=== PATIENT | female | born 1970 | race Caucasian/White ===

== ENCOUNTER 2018-10-13 19:36 | Inpatient (IN) | payer OTHER ==
[2018-10-13 21:03] VITALS: BMI 20.8
--- NOTE | 2018-10-13 21:28 | HP ---
CIWA Score Nausea/Vomitin-No Nausea/No Vomiting Muscle Tremors: 6 Anxiety: 5 Agitation: 5 Paroxysmal Sweats: No Perspiration Orientation: 0-Oriented Tacttile Disturbances: 2-Mild Itch/Numbness/Burn Auditory Disturbances: 0-None Visual Disturbances: 0-None Headache: 3-Moderate CIWA-Ar Total Score: 21 - Admission Criteria OASAS Guidelines: Admission for Medically Managed Detox: Requires at least one of the followin. CIWA greater than 12 2. Seizures within the past 24 hours 3. Delirium tremens within the past 24 hours 4. Hallucinations within the past 24 hours 5. Acute intervention needed for co occurring medical disorder 6. Acute intervention needed for co occurring psychiatric disorder 7. Severe withdrawal that cannot be handled at a lower level of care (continued vomiting, continued diarrhea, abnormal vital signs) requiring intravenous medication and/or fluids 8. Patient presents the following: Acute intervention needed for co-occurring med or psych disorder Admission Criteria Met: Admission criteria met Admission ROS [facility] Chief Complaint: SEEKING DETOX TXMENT FOR C/O WORSENING WITHDRAWAL SX'S Allergies/Adverse Reactions: Allergies Allergy/AdvReac Type Severity Reaction Status Date / Time No Known Allergies Allergy Verified 10/13/18 21:21 History of Present Illness: 48 Y.O. FEMALE WITH HX/O ALCOHOLISM HERE FOR DETOX. CLIENT WAS REFERRED BY A [facility] DRUM DRIER OPERATOR/ PCP. THIS IS HER FIRST ADMISSION HERE. STATES THIS IS HER FIRST INPATIENT TXMENT. DENIES OUTPATIENT TXMENT WELL. PRESENTS WITH C/O WORSENING WITHDRAWAL SX'S. CIWA 21. UTOX + THC, SORIN 0.249. DENIES ANY SIGNIFICANT PERIOD OF CLEAN TIME. REPORTS HX/O WITHDRAWAL SX'S, LAST EPISODE 01/09. DENIES PAST/PRESENT HX/O SI/HI,AVH, DT'S. LIVES WITH MOTHER, UNEMPLOYED, DENIES LEGALS. PMHX- CIRRHOSIS OF THE LIVER, COPD, ENDOMETRIOSIS PSYCH- DEPRESSION, ANXIETY Exam Limitations: No Limitations - Ebola screening Have you traveled outside of the country in the last 21 days: No (N) Have you had contact with anyone from an Ebola affected area: No Have you been sick,other than usual withdrawal symptoms: No Do you have a fever: No - Review of Systems Constitutional: Loss of Appetite, Malaise, Night Sweats, Changes in sleep, Unintentional Wgt. Loss EENT: reports: No Symptoms Reported Respiratory: reports: Shortness of Breath Cardiac: reports: Chest Tightness (R/T SOB/COPD) GI: reports: Poor Appetite, Poor Fluid Intake : reports: No Symptoms Reported Musculoskeletal: reports: Back Pain (CHRONIC), Neck Pain (CHRONIC) Integumentary: reports: No Symptoms Reported Neuro: reports: Seizure (R/T ALCOHOL WITHDRAWAL) Endocrine: reports: No Symptoms Reported Hematology: reports: No Symptoms Reported Psychiatric: reports: Orientated x3, Agitated, Depressed Other Systems: Reviewed and Negative Patient History - Patient Medical History Hx Anemia: No Hx Asthma: Yes Hx Chronic Obstructive Pulmonary Disease (COPD): Yes Hx Cancer: No Hx Cardiac Disorders: No Hx Congestive Heart Failure: No Hx Hypertension: No Hx Hypercholesterolemia: No Hx Pacemaker: No HX Cerebrovascular Accident: No Hx Seizures: Yes (ETOH WITHDRAWAL) Hx Dementia: No Hx Diabetes: No Hx Gastrointestinal Disorders: No Hx Liver Disease: Yes (CIRRHOSIS) Hx Genitourinary Disorders: No Hx Sexually Transmitted Disorders: No Hx Renal Disease (ESRD): No Hx Thyroid Disease: No Hx Human Immunodeficiency Virus (HIV): No Hx Hepatitis C: No Hx Depression: Yes Hx Suicide Attempt: No Hx Bipolar Disorder: No Hx Schizophrenia: No Other Medical History: ANXIETY - Patient Surgical History Past Surgical History: No - PPD History Previous Implant?: Yes Documented Results: Negative w/o proof Implanted On Prior [facility] Admission?: No PPD to be Administered?: Yes - Reproductive History Patient is a Female of Child Bearing Age (11 -55 yrs old): Yes LMP comment: 2016 Patient : No (NEG [facility] [place]) - Smoking Cessation Smoking history: Current every day smoker Have you smoked in the past 12 months: Yes Aproximately how many cigarettes per day: 20 Cigars Per Day: 0 Hx Chewing Tobacco Use: No Initiated information on smoking cessation: Yes 'Breaking Loose' booklet given: 10/13/18 - Substance & Tx. History Hx Alcohol Use: Yes Hx Substance Use: Yes Substance Use Type: Marijuana Hx Substance Use Treatment: No - Substances Abused RUM Route: Oral Frequency: Daily Amount used: 2 PINTS Age of first use: 33 Date of Last Use: 10/13/18 THC Route: Smoking Frequency: 3-6 times per week Amount used: 1/2 BLUNT Age of first use: 19 Date of Last Use: 10/10/18 Family Disease History - Family Disease History Family Disease History: Other: Father (CIRRHOSIS OF LIVER / ALCOHOLISM) , Sister (DRUGS/ CIRROHISIS / DEPRESSION) Admission Physical Exam S - Vital Signs Vital Signs: Vital Signs - 24 hr 10/13/18 21:00 Temperature 97.9 F Pulse Rate 104 H Respiratory 18 Rate Blood Pressure 102/63 - Physical General Appearance: Yes: Appropriately Dressed, Moderate Distress, Intoxicated ( BUT A/O X3), Tremorous, Irritable, Anxious HEENTM: Yes: EOMI, Normocephalic, Normal Voice, DILIP, Pharynx Normal, Scleral Ictenus R, Scleral Ictenus L Respiratory: Yes: Chest Non-Tender, Lungs Clear, Normal Breath Sounds, Decreased Breath Sounds, No Respiratory Distress Neck: Yes: No masses,lesions,Nodules, Supple, Trachea in good position Breast: Yes: Breast Exam Deferred Cardiology: Yes: Regular Rhythm, S1, S2, Tachycardia Abdominal: Yes: Decreased BS, Protuberent, Distended, Rebound (EPIGASTRIC REGION ), Hepatomegaly, Other (VARICES) Genitourinary: Yes: Other (NO C/O OFFERED) Back: Yes: Normal Inspection Musculoskeletal: Yes: full range of Motion, Gait Steady Extremities: Yes: Normal Range of Motion, Non-Tender, Tremors Neurological: Yes: Fully Oriented, Alert, Depressed Affect Integumentary: Yes: Dry, Warm, Jaundice, Petechiae (TO FACE AND UPPER CHEST), Pitting Edema (BLE) Lymphatic: Yes: Within Normal Limits - Diagnostic (1) Alcohol dependence with uncomplicated withdrawal Current Visit: Yes Status: Acute (2) Cannabis abuse, uncomplicated Current Visit: Yes Status: Acute (3) Nicotine dependence Current Visit: Yes Status: Chronic Qualifiers: Nicotine product type: cigarettes Substance use status: uncomplicated Qualified Code(s): F17.210 - Nicotine dependence, cigarettes, uncomplicated (4) Cirrhosis of liver Current Visit: Yes Status: Chronic Qualifiers: Hepatic cirrhosis type: alcoholic cirrhosis Ascites presence: unspecified Qualified Code(s): K70.30 - Alcoholic cirrhosis of liver without ascites (5) Hepatomegaly Current Visit: Yes Status: Chronic (6) Jaundice Current Visit: Yes Status: Chronic (7) Abdominal varicosities Current Visit: Yes Status: Chronic (8) Bilateral lower extremity edema Current Visit: Yes Status: Chronic (9) Scleral icterus Current Visit: Yes Status: Chronic Cleared for Admission [facility] - Detox or Rehab [facility] Level of Care: Medically Managed Detox Regimen/Protocol: Librium Claeared for Rehab Admission: No [facility] Breath Alcohol Content Breath Alcohol Content: 0.249 Urine Pregancy Test - Result Urine Test Results: Negative- NO Line Present Urine Drug Screen - Results Drug Screen Negative: No Urine Drug Screen Results: THC-Marijuana
[2018-10-13] MEDS ORDERED: MELATONIN 5 MG TABLETS PO PRN (22:00)
[2018-10-13] MEDS ORDERED: chlordiazePOXIDE HCL 25 MG CAPSULE PO PRN (22:22)
[2018-10-13] MEDS ORDERED: guaiFENesin/D-METHORPHAN HB 10 ML UNIT-DOSE CUPS PO PRN (22:22)
[2018-10-13] MEDS ORDERED: MENTHOL/PHENOL 1 EACH UD MM PRN (22:22)
[2018-10-13] MEDS ORDERED: MAGNESIUM CITRATE 300 ML BOTTLE PO PRN (22:22)
[2018-10-13] MEDS ORDERED: LOPERAMIDE HCL 2 MG CAPSULE PO PRN (22:22)
[2018-10-13] MEDS ORDERED: MAG HYDROX/AL HYDROX/SIMETH 30 ML UNIT-DOSE CUP PO PRN (22:22)
[2018-10-13] MEDS ORDERED: IBUPROFEN 400 MG TABLET (FP) PO PRN (22:22)
[2018-10-13] MEDS ORDERED: P-EPHED 60MG/TRIPROLIDI 2.5MG TABLET PO PRN (22:22)
[2018-10-13] MEDS ORDERED: MAGNESIUM HYDROX 2400MG/30ML ORAL SUSPENSION 30 ML CUP PO PRN (22:22)
[2018-10-13] MEDS ORDERED: ACETAMINOPHEN 325 MG TABLET (FP) PO PRN (22:22)
[2018-10-13] MEDS ORDERED: ALBUTEROL SO4 8 GM HFA INHALER IH PRN (22:30)
[2018-10-13] MEDS ORDERED: hydrOXYzine PAMOATE 50 MG CAPSULE (FP) PO PRN (22:52)
[2018-10-13] MEDS ORDERED: NICOTINE POLACRILEX 2 MG GUM BC PRN (22:52)
[2018-10-13] MEDS: chlordiazePOXIDE HCL 25 MG CAPSULE PO SCH (23:10)
[2018-10-14] MEDS: chlordiazePOXIDE HCL 25 MG CAPSULE PO SCH ×2 (05:26→10:29)
[2018-10-14] MEDS ORDERED: ALBUTEROL SO4 0.083% IH SOL 2.5 MG/3 ML VIAL.NEB. NEB PRN (09:12)
--- NOTE | 2018-10-14 09:14 | PN ---
BHS CIWA - CIWA Score Nausea/Vomitin-Mild Nausea/No Vomiting Muscle Tremors: 4-Moderate,w/Arms Extend Anxiety: 4-Mod. Anxious/Guarded Agitation: 2 Paroxysmal Sweats: 1-Minimal Palms Moist Orientation: 1-Uncertain about Date Tacttile Disturbances: 0-None Auditory Disturbances: 0-None Visual Disturbances: 0-None Headache: 2-Mild CIWA-Ar Total Score: 15 BHS Progress Note (SOAP) Subjective: heart burn sweating tremor headaches Objective: 10/14/18 09:14 Vital Signs Temperature 98.7 F 10/14/18 06:16 Pulse Rate 98 H 10/14/18 06:16 Respiratory Rate 18 10/14/18 06:16 Blood Pressure 99/51 L 10/14/18 06:16 O2 Sat by Pulse Oximetry (%) lab pending Assessment: 10/14/18 09:16 alcohol withdrawal sx gerd asthma Plan: continue alcohol detox regimen zantac 150 mg bid ventolin q4h prn albuterol q6h prn discontinue motrin
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
[2018-10-14] MEDS ORDERED: PATIENT'S OWN MEDICATION (NON-FORMULARY) (Potassium Chloride [Klor-Con] 20 MEQ) PO SCH (10:00)
[2018-10-14] MEDS ORDERED: PATIENT'S OWN MEDICATION (NON-FORMULARY) (Fluticasone Propionate [Flovent Diskus] 50 MCG) IH SCH (10:00)
[2018-10-14] MEDS ORDERED: POTASSIUM CHLORIDE TABS 20 MEQ TABLET.ER (FP) PO SCH ×2 (10:00→22:00)
[2018-10-14 10:27] LABS: ALBUMIN 2.3 g/dl (3.4-5.0); ALK PHOS 454 U/L (45-117); ANION GAP 10 MMOL/L (8-16); BILIRUBIN,TOTAL 2.9 mg/dL (0.2-1); BLOOD UREA NITROGEN 3 mg/dL (7-18); CALCIUM 7.7 mg/dL (8.5-10.1); CHLORIDE 92 mmol/L (98-107); CO2 32 mmol/L (21-32); CREATININE 0.3 mg/dL (0.55-1.3); GLUCOSE,RANDOM 75 mg/dL (74-106); SGOT/AST 226 U/L (15-37); SGPT/ALT 29 U/L (13-61); SODIUM 134 mmol/L (136-145); TOT PROT 6.9 g/dl (6.4-8.2)
[2018-10-14] MEDS ORDERED: PARoxetine HCL 10 MG TABLET (FP) ONE (10:29)
[2018-10-14] MEDS: PRENATAL VITAMINS W/ FOLIC ACID TABLET (FP) PO SCH (10:29)
[2018-10-14] MEDS: BUDESONIDE/FORMETEROL FUMARATE 160/4.5 mcg INHALER IH SCH ×2 (10:29→22:13)
[2018-10-14] MEDS: PARoxetine HCL 20 MG TABLET (FP) PO SCH (10:30)
[2018-10-14] MEDS: RANITIDINE HCL 150 MG TABLET (FP) PO SCH ×2 (10:30→22:13)
[2018-10-14] MEDS: NICOTINE 21 MG/24 HOURS TOPICAL PATCH TD SCH (10:30)
[2018-10-14 10:31] LABS: HEMATOCRIT 26.5 % (32.4-45.2); HEMOGLOBIN 9.4 GM/dL (10.7-15.3); MCH 34.6 pg (25.7-33.7); MCHC 35.3 g/dl (32.0-36.0); MEAN CELL VOLUME 98.2 fl (80-96); PLATELET COUNT 66 K/MM3 (134-434); RDW 16.1 % (11.6-15.6); WHITE BLOOD COUNT 8.1 K/mm3 (4.0-10.0)
[2018-10-14 10:58] LABS: POTASSIUM 2.4 mmol/L (3.5-5.1)
[2018-10-14] MEDS ORDERED: ONDANSETRON *ODT* 4 MG TABLET SL ONE (11:26)
[2018-10-14] MEDS: LORazepam 1 MG TABLET PO PRN ×2 (14:06→22:17)
[2018-10-14] MEDS: POTASSIUM CHLORIDE ORAL LIQUID 20 MEQ/15 ML PO SCH ×2 (14:29→17:16)
--- NOTE | 2018-10-14 15:10 | EKG ---
Test Reason : Blood Pressure : / mmHG Vent. Rate : 104 BPM Atrial Rate : 104 BPM P-R Int : 146 ms QRS Dur : 092 ms QT Int : 388 ms P-R-T Axes : 064 017 087 degrees QTc Int : 510 ms SINUS TACHYCARDIA NONSPECIFIC ST AND T WAVE ABNORMALITY ABNORMAL ECG NO PREVIOUS ECGS AVAILABLE Confirmed by Clarence Atkinson MD ([id number]) on 10/14/2018 3:10:20 PM Referred By: Confirmed By:Clarence Atkinson MD
[2018-10-14] MEDS: LORazepam 2 MG TABLET PO SCH ×2 (17:16→23:37)
[2018-10-14] MEDS: THIAMINE HCL 100 MG TABLET (FP) PO SCH (22:12)
[2018-10-14] MEDS: MONTELUKAST NA 10 MG TABLET PO SCH (22:12)
[2018-10-14] MEDS ORDERED: chlordiazePOXIDE HCL 25 MG CAPSULE PO SCH (23:00)
[2018-10-15 01:58] LABS: URINE APPEARANCE TURBID; URINE BILIRUBIN NEGATIVE (<2.0 mg/dL); URINE COLOR RED; URINE GLUCOSE (UA) NEGATIVE (NEGATIVE); URINE KETONE NEGATIVE (NEGATIVE); URINE LEUK ESTERASE NEGATIVE (NEGATIVE); URINE NITRITE NEGATIVE (NEGATIVE); URINE PROTEIN 1+ (NEGATIVE); URINE UROBILINOGEN 4.0 E.U/dl mg/dL (0.2-1.0)
[2018-10-15 02:07] LABS: EPI CELLS RARE /HPF (FEW); URINE BACTERIA FEW /hpf (NONE SEEN); URINE HYALINE CAST 4 /lpf; URINE MUCUS MANY
[2018-10-15] MEDS: LORazepam 1 MG TABLET PO SCH ×4 (07:20→23:00)
[2018-10-15] MEDS ORDERED: PARoxetine HCL 10 MG TABLET (FP) ONE (08:06)
[2018-10-15] MEDS ORDERED: POTASSIUM CHLORIDE TABS 20 MEQ TABLET.ER (FP) PO SCH ×2 (10:00)
[2018-10-15] MEDS: BUDESONIDE/FORMETEROL FUMARATE 160/4.5 mcg INHALER IH SCH ×2 (10:09→22:27)
[2018-10-15] MEDS: PRENATAL VITAMINS W/ FOLIC ACID TABLET (FP) PO SCH (10:09)
[2018-10-15] MEDS: PARoxetine HCL 20 MG TABLET (FP) PO SCH (10:09)
[2018-10-15] MEDS: NICOTINE 21 MG/24 HOURS TOPICAL PATCH TD SCH (10:10)
[2018-10-15] MEDS: RANITIDINE HCL 150 MG TABLET (FP) PO SCH ×2 (11:28→22:27)
--- NOTE | 2018-10-15 13:26 | PN ---
BHS Progress Note Note: potassium serum level 3.5 discontinue K+ supplement encourage K+ rich food
[2018-10-15] MEDS ORDERED: ONDANSETRON *ODT* 4 MG TABLET SL PRN (13:58)
--- NOTE | 2018-10-15 15:38 | PN ---
S CIWA - CIWA Score Nausea/Vomitin Muscle Tremors: None Anxiety: 3 Agitation: 0-Normal Activity Paroxysmal Sweats: 3 Orientation: 0-Oriented Tacttile Disturbances: 2-Mild Itch/Numbness/Burn Auditory Disturbances: 0-None Visual Disturbances: 2-Mild Sensitivity Headache: 0-None Present CIWA-Ar Total Score: 15 BHS Progress Note (SOAP) Subjective: Vomiting, Interrupted Sleep, Hot / Cold Sensations, Constipation, Stomach Cramping, H/A, Sweating, Fatigue. Objective: PATIENT A & O X 3, OBSERVED AMBULATING ON UNIT. IN NO ACUTE DISTRESS. 10/15/18 15:36 Vital Signs Temperature 100.5 F H 10/15/18 13:36 Pulse Rate 105 H 10/15/18 13:36 Respiratory Rate 18 10/15/18 13:36 Blood Pressure 97/72 10/15/18 13:36 O2 Sat by Pulse Oximetry (%) Laboratory Tests 10/14/18 10/14/18 10/14/18 07:00 07:00 07:00 WBC 8.1 RBC 2.70 L Hgb 9.4 L Hct 26.5 L MCV 98.2 H MCH 34.6 H MCHC 35.3 RDW 16.1 H Plt Count 66 L MPV 9.0 Manual Slide Review Platelet Comment No clotting detected Sodium 134 L Potassium 2.4 L* Chloride 92 L Carbon Dioxide 32 Anion Gap 10 BUN 3 L Creatinine 0.3 L Creat Clearance w eGFR > 60 Random Glucose 75 Calcium 7.7 L Total Bilirubin 2.9 H AST 226 H ALT 29 Alkaline Phosphatase 454 H Total Protein 6.9 Albumin 2.3 L Urine Color Urine Appearance Urine pH Ur Specific [place] Urine Protein Urine Glucose (UA) Urine Ketones Urine Blood Urine Nitrite Urine Bilirubin Urine Urobilinogen Ur Leukocyte Esterase Urine WBC (Auto) Urine RBC (Auto) Ur Epithelial Cells Urine Bacteria Hyaline Casts Urine Mucus RPR Titer Nonreactive 10/14/18 10/15/18 18:51 07:00 WBC RBC Hgb Hct MCV MCH MCHC RDW Plt Count MPV Manual Slide Review Platelet Comment Sodium Potassium 3.5 Chloride Carbon Dioxide Anion Gap BUN Creatinine Creat Clearance w eGFR Random Glucose Calcium Total Bilirubin AST ALT Alkaline Phosphatase Total Protein Albumin Urine Color Red Urine Appearance Turbid Urine pH 6.0 Ur Specific [place] 1.026 Urine Protein 1+ H Urine Glucose (UA) Negative Urine Ketones Negative Urine Blood Negative Urine Nitrite Negative Urine Bilirubin Negative Urine Urobilinogen 4.0 e.u/dl H Ur Leukocyte Esterase Negative Urine WBC (Auto) 2 Urine RBC (Auto) 1 Ur Epithelial Cells Rare Urine Bacteria Few Hyaline Casts 4 Urine Mucus Many RPR Titer LABS NOTED. Assessment: 10/15/18 15:36 WITHDRAWAL SYMPTOMS. ANEMIA. THROMBOCYTOPENIA. ELEVATED LIVER ENZYMES. 10/15/18 15:40 Plan: CONTINUE DETOX. INCREASE DAILY PO FLUID INTAKE. HFP TOMORROW FOR ELEVATED ADMISSION LIVER ENZYME VALUES (PATIENT PREVIOUSLY SWITCHED TO [facility] DETOX REGIMEN). REPEAT CBC TOMORROW AM FOR ADMISSION ABNORMALITIES. PATIENT CURRENTLY RECEIVING DAILY MVI CONTAINING B VITAMINS AND IRON WHILE ADMITTED FOR DETOX. PATIENT REPORTS A "LUMP" ON LOWER ABDOMEN FOR SEVERAL MONTHS NOW. SMALL MASS NOTED SLIGHTLY SUPERIOR AND ADJACENT TO UMBILICUS. NO ERYTHEMA, WOUNDS, DISCHARGE, OR SIGNS OF INFECTION NOTED AT SITE. PATIENT NOTES THAT SHE HAS ALKREADY CONSULTED HER ORTHOTIST PROSTHETIST (DR. PAYTON, [place], [place]) REGARDING THIS MATTER. PATIENT REFERRED BACK TO [facility] AFTER DISCHARGE FROM DETOX UNIT FOR FURTHER MEDICAL EVALUATION. PATIENT VERBALIZED UNDERSTANDING OF RECOMMENDATION.
[2018-10-15] MEDS: THIAMINE HCL 100 MG TABLET (FP) PO SCH (22:27)
[2018-10-15] MEDS: MONTELUKAST NA 10 MG TABLET PO SCH (22:27)
[2018-10-15] MEDS ORDERED: chlordiazePOXIDE 5 MG CAPSULE PO SCH (23:00)
[2018-10-16] MEDS: LORazepam 1 MG TABLET PO SCH ×2 (06:04→13:01)
[2018-10-16 09:23] VITALS: BP 85/63; PULSE 99; TEMP 99.4
[2018-10-16] MEDS ORDERED: PARoxetine HCL 10 MG TABLET (FP) ONE (09:35)
[2018-10-16 10:27] LABS: BASO % 1.1 % (0-2.0); EOS % 1.5 % (0-4.5); HEMATOCRIT 27.7 % (32.4-45.2); HEMOGLOBIN 9.7 GM/dL (10.7-15.3); LYMPH % 11.4 % (8-40); MCH 34.7 pg (25.7-33.7); MCHC 34.8 g/dl (32.0-36.0); MEAN CELL VOLUME 99.6 fl (80-96); MEAN PLT VOLUME 10.2 fl (7.5-11.1); MONO % 8.6 % (3.8-10.2); NEUT % 77.4 % (42.8-82.8); PLATELET COUNT 71 K/MM3 (134-434); RBC 2.79 M/mm3 (3.60-5.2); RDW 16.3 % (11.6-15.6)
[2018-10-16] MEDS: BUDESONIDE/FORMETEROL FUMARATE 160/4.5 mcg INHALER IH SCH (10:48)
[2018-10-16] MEDS: RANITIDINE HCL 150 MG TABLET (FP) PO SCH (10:48)
[2018-10-16] MEDS: PARoxetine HCL 20 MG TABLET (FP) PO SCH (10:48)
[2018-10-16] MEDS: PRENATAL VITAMINS W/ FOLIC ACID TABLET (FP) PO SCH (10:48)
[2018-10-16] MEDS: NICOTINE 21 MG/24 HOURS TOPICAL PATCH TD SCH (10:48)
[2018-10-16 11:19] LABS: ALBUMIN 2.3 g/dl (3.4-5.0); BILIRUBIN,DIRECT 3.2 mg/dL (0.0-0.2); TOT PROT 6.9 g/dl (6.4-8.2)
--- NOTE | 2018-10-16 13:59 | PN ---
S Progress Note (SOAP) Subjective: Patient still reports mild Nausea. Patient Reports that Previous Stomach Cramping has improved substantially. Objective: PATIENT A & O X 3. IN NO ACUTE DISTRESS. 10/16/18 13:54 Vital Signs Temperature 99.4 F 10/16/18 09:22 Pulse Rate 99 H 10/16/18 09:22 Respiratory Rate 18 10/16/18 09:22 Blood Pressure 85/63 L 10/16/18 09:22 O2 Sat by Pulse Oximetry (%) Laboratory Tests 10/14/18 10/14/18 10/14/18 07:00 07:00 07:00 WBC 8.1 RBC 2.70 L Hgb 9.4 L Hct 26.5 L MCV 98.2 H MCH 34.6 H MCHC 35.3 RDW 16.1 H Plt Count 66 L MPV 9.0 Absolute Neuts (auto) Neutrophils % Lymphocytes % Monocytes % Eosinophils % Basophils % Nucleated RBC % Manual Slide Review Platelet Comment No clotting detected Sodium 134 L Potassium 2.4 L* Chloride 92 L Carbon Dioxide 32 Anion Gap 10 BUN 3 L Creatinine 0.3 L Creat Clearance w eGFR > 60 Random Glucose 75 Calcium 7.7 L Total Bilirubin 2.9 H Direct Bilirubin AST 226 H ALT 29 Alkaline Phosphatase 454 H Ammonia Total Protein 6.9 Albumin 2.3 L Urine Color Urine Appearance Urine pH Ur Specific [place] Urine Protein Urine Glucose (UA) Urine Ketones Urine Blood Urine Nitrite Urine Bilirubin Urine Urobilinogen Ur Leukocyte Esterase Urine WBC (Auto) Urine RBC (Auto) Ur Epithelial Cells Urine Bacteria Hyaline Casts Urine Mucus RPR Titer Nonreactive 10/14/18 10/15/18 10/16/18 18:51 07:00 07:00 WBC 8.0 RBC 2.79 L Hgb 9.7 L Hct 27.7 L MCV 99.6 H MCH 34.7 H MCHC 34.8 RDW 16.3 H Plt Count 71 L MPV 10.2 D Absolute Neuts (auto) 6.2 Neutrophils % 77.4 Lymphocytes % 11.4 Monocytes % 8.6 Eosinophils % 1.5 Basophils % 1.1 Nucleated RBC % 0 Manual Slide Review Platelet Comment Sodium Potassium 3.5 Chloride Carbon Dioxide Anion Gap BUN Creatinine Creat Clearance w eGFR Random Glucose Calcium Total Bilirubin Direct Bilirubin AST ALT Alkaline Phosphatase Ammonia Total Protein Albumin Urine Color Red Urine Appearance Turbid Urine pH 6.0 Ur Specific [place] 1.026 Urine Protein 1+ H Urine Glucose (UA) Negative Urine Ketones Negative Urine Blood Negative Urine Nitrite Negative Urine Bilirubin Negative Urine Urobilinogen 4.0 e.u/dl H Ur Leukocyte Esterase Negative Urine WBC (Auto) 2 Urine RBC (Auto) 1 Ur Epithelial Cells Rare Urine Bacteria Few Hyaline Casts 4 Urine Mucus Many RPR Titer 10/16/18 10/16/18 07:00 13:00 WBC RBC Hgb Hct MCV MCH MCHC RDW Plt Count MPV Absolute Neuts (auto) Neutrophils % Lymphocytes % Monocytes % Eosinophils % Basophils % Nucleated RBC % Manual Slide Review Platelet Comment Sodium Potassium Chloride Carbon Dioxide Anion Gap BUN Creatinine Creat Clearance w eGFR Random Glucose Calcium Total Bilirubin 4.0 H Direct Bilirubin 3.2 H AST 133 H ALT 22 Alkaline Phosphatase 410 H Ammonia 41.80 H Total Protein 6.9 Albumin 2.3 L Urine Color Urine Appearance Urine pH Ur Specific [place] Urine Protein Urine Glucose (UA) Urine Ketones Urine Blood Urine Nitrite Urine Bilirubin Urine Urobilinogen Ur Leukocyte Esterase Urine WBC (Auto) Urine RBC (Auto) Ur Epithelial Cells Urine Bacteria Hyaline Casts Urine Mucus RPR Titer LABS NOTED. Assessment: 10/16/18 13:54 COMPLETION OF DETOX REGIMEN. Plan: RECEIVED NOTIFICATION FROM PATIENT'S COUNSELOR (Leona GALEANA) THAT BED IS OPEN FOR ADMISSION AT [facility] ([place], [place]) AT THIS TIME. PATIENT REPORTS THAT SHE FEELS WELL ENOUGH AT THIS TIME TO GO [facility] FOR AFTERCARE. DUE TO HISTORY OF HEPATIC DISEASE AND THE FACT THAT PATIENT STILL APPEARS SOMEWHAT LETHARGIC AMMONIA LEVEL ORDERED A PRECAUTION. CMP AND CBC TO BE CHECKED AGAIN IN THREE DAYS ONCE PATIENT IS ADMITTED ON REHAB UNIT. AMMONIA TO BE CHECKED AGAIN IF NECESSARY BASED UPON TODAY'S PENDING RESULT. SEE [facility] DETOX DISCHARGE SUMMARY AND [facility] MD REHAB ASSESS/REVISION NOTES FOR FURTHER INFORMATION.
--- NOTE | 2018-10-16 14:06 | DS ---
[facility] Detox Discharge Summary Admission Date: 10/13/18 Discharge Date: 10/16/18 - History Present History: Alcohol Dependence, Cannabis Dependence Additional Comments: PATIENT REPORTS NAUSEA AND FATIGUE LINGERING WITHDRAWAL SYMPTOMS. HOWEVER, THERE IS CURRENTLY A BED AVAILABLE AT [facility] ([place], [place]) TODAY, PATIENT REQUESTS TO GO ON TO [facility] FOR AFTERCARE TODAY. CBC, CMP, AND AMMONIA LEVELS TO BE RE-CHECKED AGAIN FOUR DAYS TO SEE IF ANY CHANGE SINCE ADMISSION ABNORMALITIES. AMMONIA LEVEL CHECKED TODAY PRECAUTION DUE TO LINGERING LETHARGY (RESULT NOTED, LACTULOSE ORDERED FOR THREE DAYS). PATIENT AGAIN ADVISED TO CONSULT NECK BAND OPERATOR DR. PAYTON ([place], [place]) AFTER DISCHARGE FROM REHAB FOR GENERAL MEDICAL ASSESSMENT AND FOR HISTORY OF HEPATIC DISEASE. PATIENT VERBALIZED UNDERSTANDING OF RECOMMENDATION. Pertinent Past History: History of Cirrhosis Of Liver, History of Jaundice, Elevated Liver Enzymes, Anemia, Thrombocytopenia, Hypokalemia, Asthma, Bilateral Lower Extremity Edema, Abdominal Varicosities, Scleral Icterus, Hepatomegaly, Nicotine Dependence. - Physical Exam Results Vital Signs: Vital Signs Temperature 99.4 F 10/16/18 09:22 Pulse Rate 99 H 10/16/18 09:22 Respiratory Rate 18 10/16/18 09:22 Blood Pressure 85/63 L 10/16/18 09:22 O2 Sat by Pulse Oximetry (%) Pertinent Admission Physical Exam Findings: WITHDRAWAL SYMPTOMS. Laboratory Tests 10/14/18 10/14/18 10/14/18 07:00 07:00 07:00 WBC 8.1 RBC 2.70 L Hgb 9.4 L Hct 26.5 L MCV 98.2 H MCH 34.6 H MCHC 35.3 RDW 16.1 H Plt Count 66 L MPV 9.0 Absolute Neuts (auto) Neutrophils % Lymphocytes % Monocytes % Eosinophils % Basophils % Nucleated RBC % Manual Slide Review Platelet Comment No clotting detected Sodium 134 L Potassium 2.4 L* Chloride 92 L Carbon Dioxide 32 Anion Gap 10 BUN 3 L Creatinine 0.3 L Creat Clearance w eGFR > 60 Random Glucose 75 Calcium 7.7 L Total Bilirubin 2.9 H Direct Bilirubin AST 226 H ALT 29 Alkaline Phosphatase 454 H Total Protein 6.9 Albumin 2.3 L Urine Color Urine Appearance Urine pH Ur Specific [place] Urine Protein Urine Glucose (UA) Urine Ketones Urine Blood Urine Nitrite Urine Bilirubin Urine Urobilinogen Ur Leukocyte Esterase Urine WBC (Auto) Urine RBC (Auto) Ur Epithelial Cells Urine Bacteria Hyaline Casts Urine Mucus RPR Titer Nonreactive 10/14/18 10/15/18 10/16/18 18:51 07:00 07:00 WBC 8.0 RBC 2.79 L Hgb 9.7 L Hct 27.7 L MCV 99.6 H MCH 34.7 H MCHC 34.8 RDW 16.3 H Plt Count 71 L MPV 10.2 D Absolute Neuts (auto) 6.2 Neutrophils % 77.4 Lymphocytes % 11.4 Monocytes % 8.6 Eosinophils % 1.5 Basophils % 1.1 Nucleated RBC % 0 Manual Slide Review Platelet Comment Sodium Potassium 3.5 Chloride Carbon Dioxide Anion Gap BUN Creatinine Creat Clearance w eGFR Random Glucose Calcium Total Bilirubin Direct Bilirubin AST ALT Alkaline Phosphatase Total Protein Albumin Urine Color Red Urine Appearance Turbid Urine pH 6.0 Ur Specific [place] 1.026 Urine Protein 1+ H Urine Glucose (UA) Negative Urine Ketones Negative Urine Blood Negative Urine Nitrite Negative Urine Bilirubin Negative Urine Urobilinogen 4.0 e.u/dl H Ur Leukocyte Esterase Negative Urine WBC (Auto) 2 Urine RBC (Auto) 1 Ur Epithelial Cells Rare Urine Bacteria Few Hyaline Casts 4 Urine Mucus Many RPR Titer 10/16/18 07:00 WBC RBC Hgb Hct MCV MCH MCHC RDW Plt Count MPV Absolute Neuts (auto) Neutrophils % Lymphocytes % Monocytes % Eosinophils % Basophils % Nucleated RBC % Manual Slide Review Platelet Comment Sodium Potassium Chloride Carbon Dioxide Anion Gap BUN Creatinine Creat Clearance w eGFR Random Glucose Calcium Total Bilirubin 4.0 H Direct Bilirubin 3.2 H AST 133 H ALT 22 Alkaline Phosphatase 410 H Total Protein 6.9 Albumin 2.3 L Urine Color Urine Appearance Urine pH Ur Specific [place] Urine Protein Urine Glucose (UA) Urine Ketones Urine Blood Urine Nitrite Urine Bilirubin Urine Urobilinogen Ur Leukocyte Esterase Urine WBC (Auto) Urine RBC (Auto) Ur Epithelial Cells Urine Bacteria Hyaline Casts Urine Mucus RPR Titer LABS NOTED. - Treatment Hospital Course: Detox Protocol Followed, Detoxed Safely, Responded well, Discharged Condition Good, Rehab Referral Accepted Patient has Accepted a Rehab Referral to: [facility] ([place], [place]). - Medication Discharge Medications: Ambulatory Orders Albuterol Sulfate Inhaler - [Ventolin Hfa Inhaler -] 2 inh PO Q6H 10/13/18 Budesonide/Formeterol Fumarate [SYMBICORT 160/4.5mcg -] 1 inh PO BID 10/13/18 Ergocalciferol [Vitamin D2] 50,000 unit PO WEEKLY 10/13/18 Fluticasone Propionate [Flovent Diskus] 50 mcg IH DAILY 10/13/18 Montelukast Sodium [Singulair] 10 mg PO HS 10/13/18 Paroxetine HCl [Paxil -] 20 mg PO DAILY 10/13/18 Potassium Chloride [Klor-Con] 20 meq PO DAILY 10/13/18 - Diagnosis (1) Alcohol dependence with uncomplicated withdrawal Status: Acute (2) Anemia Status: Acute Qualifiers: Anemia type: unspecified type Qualified Code(s): D64.9 - Anemia, unspecified (3) Cannabis abuse, uncomplicated Status: Acute (4) Elevated liver enzymes Status: Acute (5) Thrombocytopenia Status: Acute (6) Abdominal varicosities Status: Chronic (7) Bilateral lower extremity edema Status: Chronic (8) Cirrhosis of liver Status: Chronic Qualifiers: Hepatic cirrhosis type: alcoholic cirrhosis Ascites presence: unspecified Qualified Code(s): K70.30 - Alcoholic cirrhosis of liver without ascites (9) Jaundice Status: Chronic (10) Nicotine dependence Status: Chronic Qualifiers: Nicotine product type: cigarettes Substance use status: uncomplicated Qualified Code(s): F17.210 - Nicotine dependence, cigarettes, uncomplicated (11) Scleral icterus Status: Chronic (12) Substance induced mood disorder Status: Acute (13) Hepatomegaly Status: Chronic (14) Hyperammonemia Status: Acute - AMA Did Patient Leave Against Medical Advice: No
[2018-10-16] MEDS ORDERED: chlordiazePOXIDE HCL 10 MG CAPSULE PO SCH (23:00)
[2018-10-17] MEDS ORDERED: LORazepam 2 MG TABLET PO ONE (06:00)
== END 2018-10-16 03:45 | disposition home or self-care (01) | DRG 774 ==
LOC: YASAS 19:36 → Y3N 22:06
PROVIDERS: ADMIT Surgery; ATTEND Surgery
PROC: HZ2ZZZZ Detoxification Services for Substance Abuse Treatment (ICD-10-PCS; principal; 2018-10-13)
DX: F10.230 Alcohol dependence with withdrawal, uncomplicated (principal); F14.10 Cocaine abuse, uncomplicated; F17.210 Nicotine dependence, cigarettes, uncomplicated; F19.24 Other psychoactive substance dependence with psychoactive substance-induced mood disorder; R00.0 Tachycardia, unspecified; D64.9 Anemia, unspecified; D69.6 Thrombocytopenia, unspecified; I86.8 Varicose veins of other specified sites; R60.0 Localized edema; K70.30 Alcoholic cirrhosis of liver without ascites; R17 Unspecified jaundice; H15.89 Other disorders of sclera; R16.0 Hepatomegaly, not elsewhere classified; E72.20 Disorder of urea cycle metabolism, unspecified; J44.9 Chronic obstructive pulmonary disease, unspecified; K21.9 Gastro-esophageal reflux disease without esophagitis; Z86.69 Personal history of other diseases of the nervous system and sense organs
CPT/HCPCS: 36415; 80053; 80076; 81003; 81015; 82140; 84132; 85025; 85027; 86593; 93005; 93010; Q0162

== ENCOUNTER 2018-10-16 15:49 | Inpatient (IN) | payer OTHER ==
--- NOTE | 2018-10-16 14:13 | HP ---
CAITLIN RAMÍREZ Rehab Assess/Revision - Admission History Admitted to Rehab from: [facility] Date of Admission to Rehab: 10/16/2018 - Vital signs Vital Signs: NOTED; STABLE. - Findings Detox History & Physical reviewed: Yes Concur with findings: Yes Comments/Additional Findings: PATIENT'S MEDICAL / MEDICATION HISTORY REVIEWED PRIOR TO DISCHARGE FROM DETOX UNIT. PATIENT WAS DISCHARGED FROM DETOX UNIT TO BE TAKEN TO REHAB UNIT IN STABLE MEDICAL CONDITION. CBC, CMP, AND AMMONIA LEVELS TO BE RE-CHECKED AGAIN FOUR DAYS TO SEE IF ANY CHANGE SINCE ADMISSION ABNORMALITIES. AMMONIA LEVEL CHECKED TODAY PRECAUTION DUE TO LINGERING LETHARGY WHILE ON DETOX UNIT (RESULT NOTED, LACTULOSE PO ORDERED FOR THREE DAYS) . PATIENT AGAIN ADVISED TO CONSULT ANIMAL HERDER DR. PAYTON ([place], [place]) AFTER DISCHARGE FROM REHAB FOR GENERAL MEDICAL ASSESSMENT AND FOR HISTORY OF HEPATIC DISEASE. PATIENT VERBALIZED UNDERSTANDING OF RECOMMENDATION. Inpatient Rehab Admission - Rehab Decision to Admit Inpatient rehab admission?: Yes - Initial Determination Are CD services needed?: Yes Free of communicable disease: Yes Not in need of hospitalization: Yes - Rehab Admission Criteria Previous failed treatment: No Poor recovery environment: No Comorbidities: Yes Lacks judgement: Yes Patient is meeting Inpatient Rehab admission criteria:: Yes
[~2018-10-16 15:49] MED LIST: ALBUTEROL SO4 2.5/IPRATROPIUM 0.5 INH SOL 3 ML VIAL.NEB. NEB PRN; ALBUTEROL SO4 8 GM HFA INHALER IH PRN; IBUPROFEN 400 MG TABLET (FP) PO PRN; LOPERAMIDE HCL 2 MG CAPSULE PO PRN; MAG HYDROX/AL HYDROX/SIMETH 30 ML UNIT-DOSE CUP PO PRN; MAGNESIUM CITRATE 300 ML BOTTLE PO PRN; MAGNESIUM HYDROX 2400MG/30ML ORAL SUSPENSION 30 ML CUP PO PRN; MENTHOL/PHENOL 1 EACH UD MM PRN; NICOTINE POLACRILEX 2 MG GUM BUC PRN; ONDANSETRON *ODT* 4 MG TABLET SL PRN; P-EPHED 60MG/TRIPROLIDI 2.5MG TABLET PO PRN; guaiFENesin/D-METHORPHAN HB 10 ML UNIT-DOSE CUPS PO PRN
[2018-10-16] MEDS: LACTULOSE 20 GM/30 ML UDC (FOR ORAL USE ONLY) PO SCH (21:59)
[2018-10-16] MEDS: THIAMINE HCL 100 MG TABLET (FP) PO SCH (21:59)
[2018-10-16] MEDS: RANITIDINE HCL 150 MG TABLET (FP) PO SCH (22:00)
[2018-10-16] MEDS: BUDESONIDE/FORMETEROL FUMARATE 160/4.5 mcg INHALER IH SCH (22:00)
[2018-10-16] MEDS: MONTELUKAST NA 10 MG TABLET PO SCH (22:00)
[2018-10-16] MEDS ORDERED: MELATONIN 5 MG TABLETS PO PRN (22:00)
[2018-10-16 22:32] VITALS: BMI 21.9
[2018-10-17] MEDS ORDERED: PT OWN MED DRAWER 7, Y5N ONE (08:35)
[2018-10-17] MEDS: NICOTINE 21 MG/24 HOURS TOPICAL PATCH TD SCH (09:46)
[2018-10-17] MEDS: BUDESONIDE/FORMETEROL FUMARATE 160/4.5 mcg INHALER IH SCH ×2 (09:46→21:31)
[2018-10-17] MEDS: PRENATAL VITAMINS W/ FOLIC ACID TABLET (FP) PO SCH (09:46)
[2018-10-17] MEDS: RANITIDINE HCL 150 MG TABLET (FP) PO SCH ×2 (09:46→21:30)
[2018-10-17] MEDS: LACTULOSE 20 GM/30 ML UDC (FOR ORAL USE ONLY) PO SCH ×2 (09:46→21:30)
[2018-10-17] MEDS: THIAMINE HCL 100 MG TABLET (FP) PO SCH (21:30)
[2018-10-17] MEDS: MONTELUKAST NA 10 MG TABLET PO SCH (21:30)
[2018-10-18] MEDS: LACTULOSE 20 GM/30 ML UDC (FOR ORAL USE ONLY) PO SCH ×2 (09:50→21:37)
[2018-10-18] MEDS: NICOTINE 21 MG/24 HOURS TOPICAL PATCH TD SCH (09:50)
[2018-10-18] MEDS: RANITIDINE HCL 150 MG TABLET (FP) PO SCH ×2 (09:51→21:37)
[2018-10-18] MEDS: BUDESONIDE/FORMETEROL FUMARATE 160/4.5 mcg INHALER IH SCH ×2 (09:51→21:38)
[2018-10-18] MEDS: PRENATAL VITAMINS W/ FOLIC ACID TABLET (FP) PO SCH (09:51)
[2018-10-18] MEDS: MONTELUKAST NA 10 MG TABLET PO SCH (21:38)
[2018-10-18] MEDS: THIAMINE HCL 100 MG TABLET (FP) PO SCH (21:38)
[2018-10-19] MEDS: BUDESONIDE/FORMETEROL FUMARATE 160/4.5 mcg INHALER IH SCH ×2 (09:58→21:34)
[2018-10-19] MEDS: NICOTINE 21 MG/24 HOURS TOPICAL PATCH TD SCH (09:58)
[2018-10-19] MEDS: PRENATAL VITAMINS W/ FOLIC ACID TABLET (FP) PO SCH (09:58)
[2018-10-19] MEDS: LACTULOSE 20 GM/30 ML UDC (FOR ORAL USE ONLY) PO SCH (09:58)
[2018-10-19] MEDS: RANITIDINE HCL 150 MG TABLET (FP) PO SCH ×2 (09:59→21:34)
[2018-10-19] MEDS: MONTELUKAST NA 10 MG TABLET PO SCH (21:34)
[2018-10-19] MEDS: THIAMINE HCL 100 MG TABLET (FP) PO SCH (21:34)
[2018-10-20 06:58] VITALS: PULSE 84; TEMP 97.8
[2018-10-20 07:28] VITALS: BP 82/54
--- NOTE | 2018-10-20 09:54 | CONSULT ---
[facility] Psychiatric Consult - Data Date of interview: 10/20/18 Admission source: [address] [place] [address] Identifying data: This is the first admission to [address] [place] [address] for this 48 years old single H childless,unemployed,supported by PA,resides with her mother. Substance Abuse History: Patient reports drinking since school,beer,recently heavy drinker with seizures,started drinking Rum. Medical History: COPD,Liver cirrhosis,Endometriosis. Psychiatric History: Reports first contact with psychiatrist about 5 years ago to address depressed mood,anxiety,sleeping difficulties.No suicidal attempts,no psychiatric admissions reported.Patient obtains paxil 20 mg po daily from her PCP. Physical/Sexual Abuse/Trauma History: denies Mental Status Exam - Mental Status Exam Alert and Oriented to: Time, Place, Person Cognitive Function: Grossly Intact Patient Appearance: Well Groomed Mood: Sad, Anxious, Irritable Affect: Mood Congruent, Labile Patient Behavior: Cooperative Speech Pattern: Clear Voice Loudness: Normal Thought Process: Goal Oriented Thought Disorder: Not Present Hallucinations: Denies Suicidal Ideation: Denies Homicidal Ideation: Denies Insight/Judgement: Fair Sleep: Difficulty falling asleep Appetite: Fair Muscle strength/Tone: Normal Gait/Station: Normal Psychiatric Findings - Problem List ([place] 1, 2,3) (1) Alcohol dependence with uncomplicated withdrawal Status: Chronic (2) Anemia Status: Acute Qualifiers: Anemia type: unspecified type Qualified Code(s): D64.9 - Anemia, unspecified (3) Cannabis abuse, uncomplicated Status: Chronic (4) Substance induced mood disorder Status: Chronic (5) Thrombocytopenia Status: Chronic (6) Abdominal varicosities Status: Chronic - Initial Treatment Plan Initial Treatment Plan: Continue Paxil 20 mg po daily. Will monitor progress.
[2018-10-20 09:56] LABS: BASO % 1.1 % (0-2.0); EOS % 1.1 % (0-4.5); HEMATOCRIT 29.5 % (32.4-45.2); HEMOGLOBIN 10.2 GM/dL (10.7-15.3); LYMPH % 13.2 % (8-40); MCH 34.6 pg (25.7-33.7); MCHC 34.7 g/dl (32.0-36.0); MEAN CELL VOLUME 99.8 fl (80-96); MEAN PLT VOLUME 9.6 fl (7.5-11.1); MONO % 10.9 % (3.8-10.2); NEUT % 73.7 % (42.8-82.8); PLATELET COUNT 146 K/MM3 (134-434); RBC 2.96 M/mm3 (3.60-5.2); RDW 16.6 % (11.6-15.6)
[2018-10-20] MEDS ORDERED: PARoxetine HCL 20 MG TABLET (FP) PO SCH (10:15)
--- NOTE | 2018-10-20 10:22 | PN ---
[facility] Progress Note Note: PATIENT SEEN FOR REQUEST TO SIGN OUT AMA. [employer]ARNISH MIXER MET WITH PATIENT WHO REPORTED THAT SHE COULD NOT RELAX, SLEEP OR FEEL COMFORTABLE IN THIS ENVIRONMENT. PATIENT STATES SHE HAS DEPRESSION AND ANXIETY AND BEING IN THIS SETTING IS MAKING HER FEEL WORSE. PSYCH REFERRAL ORDERED AND PATIENT WAS EVALUATED BY PSYCHIATRY. PATIENT COMPLETED DETOX HERE AT [facility] FOR ETOH DEPENDENCE AND HAS PMH OF ASTHMA AND CIRRHOSIS OF THE LIVER. LAST AMMONIA LEVEL 41 AND PATIENT TREATED WITH LACTULOSE. PATIENT HAS REPEAT LABS PENDING BUT REFUSED TO STAY TO COMPLETE REHAB/ FOLLOW UP RESULTS/ AND TREATMENT. PATIENT INFORMED OF LABS RESULTS AND STATED " I HAVE A PCP DR. HOOVER AT [facility] AND I WILL SEE HER TOMORROW". PATIENT EXPLAINED MEDICAL RISK FACTORS WITH SIGNING OUT AMA AND VERBALIZED UNDERSTANDING OF ALL INFORMATION PROVIDED TO HER. PATIENT DENIES SI/HI AND ENCOURAGED TO ATTEND GROUP MEETINGS TO PREVENT RELAPSE. INHALERS/MEDICAL MEDICATION SENT TO [facility].
[2018-10-20] MEDS: PRENATAL VITAMINS W/ FOLIC ACID TABLET (FP) PO SCH (10:23)
[2018-10-20] MEDS: RANITIDINE HCL 150 MG TABLET (FP) PO SCH (10:23)
[2018-10-20] MEDS: NICOTINE 21 MG/24 HOURS TOPICAL PATCH TD SCH (10:23)
[2018-10-20] MEDS: BUDESONIDE/FORMETEROL FUMARATE 160/4.5 mcg INHALER IH SCH (10:23)
[2018-10-20 10:27] LABS: ALBUMIN 2.3 g/dl (3.4-5.0); ALK PHOS 317 U/L (45-117); ANION GAP 7 MMOL/L (8-16); BILIRUBIN,TOTAL 5.1 mg/dL (0.2-1); BLOOD UREA NITROGEN 5 mg/dL (7-18); CHLORIDE 94 mmol/L (98-107); CO2 29 mmol/L (21-32); CREATININE 0.4 mg/dL (0.55-1.3); GLUCOSE,RANDOM 87 mg/dL (74-106); POTASSIUM 3.3 mmol/L (3.5-5.1); SGOT/AST 113 U/L (15-37); SGPT/ALT 25 U/L (13-61); SODIUM 130 mmol/L (136-145); TOT PROT 6.9 g/dl (6.4-8.2)
== END 2018-10-20 11:20 | disposition home or self-care (01) | DRG 772 ==
LOC: YASAS 15:49 → Y3E 15:51
PROVIDERS: ADMIT Neuromusculoskeletal Medicine & OMM; ATTEND Neuromusculoskeletal Medicine & OMM
PROC: HZ42ZZZ Group Counseling for Substance Abuse Treatment, Cognitive-Behavioral (ICD-10-PCS; principal; 2018-10-16)
DX: F10.230 Alcohol dependence with withdrawal, uncomplicated (principal); F12.10 Cannabis abuse, uncomplicated; F19.24 Other psychoactive substance dependence with psychoactive substance-induced mood disorder; D64.9 Anemia, unspecified; D69.6 Thrombocytopenia, unspecified; I86.4 Gastric varices; K74.60 Unspecified cirrhosis of liver
CPT/HCPCS: 36415; 80053; 82140; 85025